=== PATIENT | male | born 1985 | race Caucasian/White ===

== ENCOUNTER 2024-03-26 09:43 | Emergency (ER) | payer OTHER, SELFPAY ==
[2024-03-26 09:51] VITALS: BP 123/75; PULSE 108; RESP 20; TEMP 36.4; O2SAT 100
--- NOTE | 2024-03-26 10:17 | ED.URI ---
HPI - URI/Sore Throat General Chief Complaint: Upper Respiratory Infection Stated Complaint: Sore Throat/Fever/Cough Time Seen by Provider: 03/26/24 10:10 Source: patient, family, RN notes reviewed and old records reviewed Mode of arrival: ambulatory Limitations: no limitations History of Present Illness HPI Narrative: 38 year old male who presents to express care with complaints of sore throat, chest congestion, fevers and can't ear and can barely drink. Patient reports that his symptoms started last and he was seen in the urgent care at [facility] on Sunday with negative strep test started on Augmentin for tonsillitis, Patient reports that he went back on Sunday and was told to give the Augment a little longer and to take Tylenol and Ibuprofen for discomfort. Patient reports 4 days of antibiotic left and he is not any better. Throat is red with tonsils swollen and uvula swollen with scattered exudates on tonsils. Patient reports that he continues to have fevers and has been taking Tylenol and Ibuprofen with dosing this morning. Patient reports that he has been running fevers ranging from 100-101.7F. MD elicited complaint: cough and sore throat Onset (ago): day(s) (6) Consistency: constant Severity: moderate Able to tolerate fluids by mouth: Yes Associated symptoms: fever, sore throat, cough and other (chest congestion, difficulty with swallowing and pain) Related Data Home Medications ?Medication ?Instructions ?Recorded ?Confirmed ?Last Taken ?Type amoxicillin 875 mg-potassium tablet 03/26/24 Unknown History clavulanate 125 mg tablet gabapentin 100 mg capsule mg 03/26/24 Unknown History Allergies Allergy/AdvReac Type Severity Reaction Status Date / Time No Known Allergies Allergy Verified 03/26/24 10:04 Review of Systems Review of Systems: CONSTITUTIONAL: reports malaise, chills, sweats, or fever. EYES: Denies visual changes, redness, or discharge. ENT: Reports rhinorrhea, congestion, sinus pain, no otalgia and positive for sore throat. CARDIOVASCULAR: Denies chest pain, palpitations, or edema. RESPIRATORY: Reports cough.? Denies dyspnea. GASTROINTESTINAL: Denies abdominal pain, nausea, vomiting, diarrhea SKIN: Denies rash or itching. MUSCULOSKELETAL: Denies myalgia. NEUROLOGIC: Denies headache. All systems reviewed & are unremarkable except as noted in HPI and below PMFSH Social History Social History Smoking status: Never smoker Alcohol intake: current Alcohol use details: social Substance use type: does not use Living arrangements: with family Occupation/Education: occupation Additional occupation/education comments: [employer] Gender identity (if verbalized by the patient): Male Comments At time of signature, agree with nursing past medical, surgical, social and family history. There is no relevant family history pertinent to the presenting complaint Exam Narrative: GENERAL: Ill-appearing, well-nourished, and in no acute distress. HEAD: Normocephalic EYES: PERRLA, conjunctivae clear ENT: Nares clear, turbinates edematous and erythematous, clear discharge. Mucous membranes moist. TM pearly boswell with dull light reflex bilaterally; no tragal tenderness. Oropharynx erythematous without lesions. Tonsils red enlarged and with white exudate, no drooling, some hoarseness, no trismus,no Cristopher angina, uvula red swollen midline.post nasal drainage NECK: Supple. lymphadenopathy CHEST: Clear to auscultation, breath sounds equal. No wheezing, rhonchi, rales, or stridor. No respiratory distress, speaks in full sentences.loose cough SAO2 100% on room air HEART: Regular rate and rhythm. No murmur heard. SKIN: Warm, dry, no rash. NEURO: Alert and oriented x3. PSYCH: Normal mood and affect Course Course Emergency Course: Patient is aware of diagnosis, understands and agrees to treatment plan.? Anticipatory guidance given.? Patient agrees to follow-up as directed and is aware of reasons to seek care at the emergency department. Portions of this record may have been created with voice recognition software Level of Care: Express Care Visit Vital Signs Vital signs: Vital Signs Temperature 36.4 C 03/26/24 09:51 Pulse Rate 108 H 03/26/24 09:51 Respiratory Rate 20 03/26/24 09:51 Blood Pressure 123/75 03/26/24 09:51 Pulse Oximetry 100 03/26/24 09:51 Oxygen Delivery Room Air 03/26/24 09:51 Temperature 36.4 C 03/26/24 09:51 Pulse Rate 108 H 03/26/24 09:51 Respiratory Rate 20 03/26/24 09:51 Blood Pressure 123/75 03/26/24 09:51 Pulse Oximetry 100 03/26/24 09:51 Oxygen Delivery Room Air 03/26/24 09:51 Reviewed MDM - URI/Sore Throat MDM Narrative Medical decision making narrative: Differential diagnosis considered: Hathaway virus, strep pharyngitis, allergic rhinitis, upper respiratory tract infection, sinusitis, rhinosinusitis, nasopharyngitis. viral pharyngitis, otitis media, otitis externa, pneumonia, bronchitis, viral cough syndrome, viral syndrome, and influenza.? Exam findings show no acute concerns or changes; patient is non-toxic appearing and is in no distress.? Patient is appropriate for outpatient treatment and follow-up. Differential Diagnosis Differential diagnosis: Likely upper respiratory infection, sinusitis, viral infection, pharyngitis and other (strep pharyngitis, exudative tonsilitis, painful and difficulty with swallowing) Medical Records Attestation: I reviewed the patient's medical records. Lab Data Attestation: I reviewed the patient's lab results. Critical Care Time Critical Care Time Critical Care Time: No Discharge Plan Discharge Clinical Impression: Exudative tonsillitis Patient Disposition: Home, Self-Care Condition: Stable Instructions: Antibiotic Form, Tonsillitis (ED) Additional Instructions: . Take the entire course of antibiotics. Decadron dose daily as ordered for swelling Throw away your current toothbrush and begin using a new toothbrush in 48 hours in order to prevent re-infection. Sanitize all reusable water bottles . Do not share items with others. Salt water gargles may alleviate some of the throat discomfort. You can take Tylenol or ibuprofen per the package instructions for pain/fever. Steroid as prescribed take with food Recommend Claritin,Zyrtec or Kath daily and include decongestant such as Sudafed in am If your symptoms persist, change or worsen significantly before you can contact your personal physician then please, without delay, go to the emergency department for further evaluation. Follow-up with PCP in 7-10 days or sooner if needed Patient Language: Japanese Prescriptions: New clindamycin HCl 300 mg capsule 300 mg PO Q8H Qty: 30 0RF dexamethasone 6 mg tablet 6 mg PO DAILY Qty: 5 0RF Rx Instructions: take with food in am No Action gabapentin 100 mg capsule amoxicillin-pot clavulanate 875-125 mg tablet Follow-up/Referrals: PHYSICIAN,ACCOUNT CONSULTANT [Primary Care Provider] - Stand Alone Forms: Work/School Release IP Time of Disposition: 10:33 Quality Laquita Coma Scale Eyes: Open Verbal: Oriented and Alert Motor: Follows Commands Laquita Coma Total Score: 15
--- OUTSIDE RECORDS SUMMARY | 2024-03-26 10:48 | XMS_ITS | Encounter Summary ---
Author Organization [facility] Address [address] [place] [address] Care Team Providers Care Internet Assessor Name Role Phone Cherry Benitez [facility] Primary Care Provider + Encounter Details Date Type Department Care Team (Late st Contact Info) Description 09/29/2022 Nimiat Message Enc [facility] Medical Group Family & Internal Medicine [facility] [id number] [place] [phone] Cherry Benitez [facility] [id number] [place] [address], [address] [place] [address] Sleep test. Social History Tobacco Use Types Packs/Day Years Used Date Smoking Tobacco: Former Cigarettes 0.5 5 0 09/12/2009 - 09/12/2014 Smokeless Tobacco: Current Chew Alcohol Use Standard Drinks/Week Comments Yes 0 (1 standard drink = 0.6 oz pur e alcohol) 6 drinks per week, alma PHQ-2 Answer Date Recorded Patient Health Questionnaire-2 Score 0 09/29/2022 Sex and Gender Information Value Date Recorded Sex Assigned at Not on file Legal Sex Male 5:47 PM CDT Gender Identity Not on file Sexual Orientation Not on file documented as of this encounter Progress Notes * Laura Mills RN - 10/02/2022 1:16 PM CDT Patient inquiring about a home sleep study? Ok to order? documented in this encounter Plan of Treatment Not on file documented as of this encounter Visit Diagnoses Not on filedocumented in this encounter Care Teams Internet Assessor Relationship Specialty Start Date End Date Cherry Benitez, [facility]- [address], [address] [place] [address] PCP - General Nurse Practitioner Family 09/28/22 documented as of this encounter
--- OUTSIDE RECORDS SUMMARY | 2024-03-26 10:48 | XMS_ITS | Clinical Summary ---
Author Organization [facility] Address [address] [place] [address] Phone Care Team Providers Care Polysomnographer Name Role Phone Provider, None Primary Care Provider Unavailabl e Allergies No known active allergies Medications gabapentin (NEURONTIN) 100 MG Capsule 03/01/2024 Active losartan (COZAAR) 100 MG Tablet Take 100 mg by mouth daily. 05/04/2023 Active amoxicillin-clav ulanate (AUGMENTIN) 875-125 MG TabletIndication s:Tonsillitis with exudate Take 1 Tablet by mouth 2 times daily for 10 days. 20 Tablet 03/21/2024 Active Hospital, Clinic, or Other Facility Administered Medication Ordered Dose Route Frequency Start Date End Date Status ibuprofen (MOTRIN) tablet 800 mgIndications:Fever in adult 800 mg PO ONCE 03/23/2024 03/23/2024 Ended Active Problems No known active problems Encounters Date Type Department Care Team Description 03/23/2024 12:25 PM BLOW MOLDING MACHINE OPERATOR Urgent Care Visit [facility] [address] [place] [address] Ryan Henry PAC Fever in adult (Primary Dx); Tonsillitis with exudate Discharge Disposition: Discharged to home or Selfcare 03/21/2024 10:20 AM BLOW MOLDING MACHINE OPERATOR Urgent Care [facility] [address] [place] [address] Gladis Lozada APRN, SAUSAGE STUFFER Tonsillitis with exudate (Primary Dx); Sore throat Discharge Disposition: Discharged to home or Selfcare 03/21/2024 Travel from Last 3 Months Immunizations Immunization Administration Dates Next Due Covid-19, Mrna, Lnp-s, PF, 1 00 mcg/0.5 mL Dose (Moderna) 02/20/2020 Social History Tobacco Use Types Packs/Day Years Used Date Smoking Tobacco: Never Smokeless Tobacco: Never Tobacco Cessation:Counseling Given: No Sex and Gender Information Value Date Recorded Sex Assigned at Not on file Legal Sex Male 3:43 AM BLOW MOLDING MACHINE OPERATOR Gender Identity Not on file Sexual Orientation Not on file Last Filed Vital Signs Vital Sign Reading Time Taken Comments Blood Pressure 142/68 03/23/2024 12:39 PM BLOW MOLDING MACHINE OPERATOR Pulse 127 03/23/2024 12:39 PM BLOW MOLDING MACHINE OPERATOR Temperature 38.7 C (101.6 F) 03/23/2024 12:39 PM BLOW MOLDING MACHINE OPERATOR Respiratory Rate 18 03/23/2024 12:39 PM BLOW MOLDING MACHINE OPERATOR Oxygen Saturation 98% 03/23/2024 12:39 PM BLOW MOLDING MACHINE OPERATOR Inhaled Oxygen Concentration - - Weight - - Height - - Body Mass Index - - Plan of Treatment Health Maintenance Due Date Last Done Comments Hepatitis C Virus (HCV) Screening 1985 TdaP Immunization 1985 Influenza Immunization (#1) 2023 SARS-COV-2 Immunization (2023- season) 2023 03/16/2020, 02/20/2020 Respiratory Syncytial Virus (RSV) Immunization (Adult) (1 - 1-dose 75+ series) 2060 Hepatitis B Immunization Completed , 09/30/1999, 08/26/1999 Meningococcal Immunization (ACWY) Aged Out No longer eligible b ased on patient's age to complete this topic Pneumococcal Immunization Combined Aged Out No longer eligible b ased on patient's age to complete this topic Rotavirus Immunization Aged Out No lo nger eligible based on patient's age to complete this topic Procedures Procedure Name Priority Date/Time Associated Diagnosis Comments POC INFLUENZA A AND B BY MOLECULAR Routine 03/21/2024 10:40 AM BLOW MOLDING MACHINE OPERATOR Sore throat POC GROUP A STREP BY MOLECULAR Routine 03/21/2024 10:39 AM BLOW MOLDING MACHINE OPERATOR Sore throat POC SARS-COV-2 BY MOLECULAR Routine 03/21/2024 10:39 AM BLOW MOLDING MACHINE OPERATOR Sore throat from Last 3 Months Results * POC INFLUENZA A AND B BY MOLECULAR (03/21/2024 10:40 AM BLOW MOLDING MACHINE OPERATOR) INFLUENZA A RNA Negative Negative, Invalid INFLUENZA B RNA Negative Negative, Invalid PROCEDURE CONTROL Valid 03/21/2024 10:4 0 AM BLOW MOLDING MACHINE OPERATOR us Gladis L [employer] HAND CANDLE MOLDER, SAUSAGE STUFFER POINT OF CARE TESTI NG (MANUAL) Final Result * POC SARS-COV-2 BY MOLECULAR (03/21/2024 10:39 AM BLOW MOLDING MACHINE OPERATOR) SARSCOV2 Negative Negative, INVALID PROCEDURE CONTROL Valid 03/21/2024 10:3 9 AM BLOW MOLDING MACHINE OPERATOR us Gladis L [employer] HAND CANDLE MOLDER, SAUSAGE STUFFER POINT OF CARE TESTI NG (MANUAL) Final Result * POC GROUP A STREP BY MOLECULAR (03/21/2024 10:39 AM BLOW MOLDING MACHINE OPERATOR) STREP A DNA Negative Negative, Invalid PROCEDURE CONTROL Valid 03/21/2024 10:3 9 AM BLOW MOLDING MACHINE OPERATOR us Gladis L [employer] HAND CANDLE MOLDER, SAUSAGE STUFFER POINT OF CARE TESTI NG (MANUAL) Final Result from Last 3 Months Insurance [facility] Care Teams Polysomnographer Relationship Specialty Start Date End Date Provider, None JENNY PCP - General 03/21/24
--- OUTSIDE RECORDS SUMMARY | 2024-03-26 10:48 | XMS_ITS | Clinical Summary ---
Author Organization [facility] Address [facility] [place] [address] Care Team Providers Care Floor Tiling Professional Name Role Phone Cherry Benitez [facility] Primary Care Provider + Allergies No known active allergies Medications Testosterone Cypionate Powder 07/14/2022 Ac tive Testosterone Enanthate Powder 07/14/2022 Ac tive Testosterone Propionate Powder 07/14/2022 A ctive losartan (COZAAR) 100 MG tabletIndications :Primary hypertension Take 1 tablet (100 mg total) by mouth daily. 90 tablet 1 05/04/2023 Active Active Problems Problem Noted Date Diagnosed Date Moderate obstructive sleep apnea 05/14/2023 Tobacco dependence due to chewing tobacco 2022 Low testosterone level in male 09/29/2022 Loud snoring 09/29/2022 Primary hypertension 09/29/2022 Immunizations Name Administration Dates Next Due Dtp (Generic) 07/24/1990, 8,02/24/1986, 986,1985 Hepatitis B Pediatric 02/03/2000,09/30/1999,08/12 Hib (Generic) 11/23/1987 MMR (MMRII) 07/24/1990,11/24/1986 MODERNA COVID-19 (12+) MRNA, LNP-S, PF, 100 MCG/ 0.5 ML DOSE 03/26/2020,03/16/2020,02/20/2020 Polio Opv (Generic) 07/24/1990, 8,02/24/1986, 986,1985 Td 02/12/2019 Td (TDVAX) 08/23/1999 Family History Medical History Relation Comments Arthritis Father ALS Maternal Grandfather Heart Disease Maternal Grandmother Heart Disease Mother Hypertension Mother Liver Disease Paternal Grandfather Lung Cancer Paternal Grandfather Relation Status Comments Father Alive Maternal Grandfather Maternal Grandmother Mother Alive Paternal Grandfather Social History Tobacco Use Types Packs/Day Years Used Date Smoking Tobacco: Former Cigarettes 0.5 5 0 09/12/2009 - 09/12/2014 Smokeless Tobacco: Current Chew Tobacco Cessation:Ready to Q uit: No; Counseling Given: Yes Alcohol Use Standard Drinks/Week Comments Yes 0 (1 standard drink = 0.6 oz pur e alcohol) 6 drinks per week, alma PHQ-2 Answer Date Recorded Patient Health Questionnaire-2 Score 0 05/14/2023 Sex and Gender Information Value Date Recorded Sex Assigned at Not on file Legal Sex Male 5:47 PM CDT Gender Identity Not on file Sexual Orientation Not on file Last Filed Vital Signs Vital Sign Reading Time Taken Comments Blood Pressure 131/84 05/14/2023 7:11 AM CDT Pulse 84 05/14/2023 6:59 AM CDT Temperature 36.3 C (97.4 F) 05/14/2023 6:59 AM CDT Respiratory Rate 16 05/14/2023 6:59 AM CDT Oxygen Saturation 98% 05/14/2023 6:59 AM CDT Inhaled Oxygen Concentration - - Weight 93.8 kg (206 lb 12.8 oz) 05/14/2023 6:59 AM CDT Height 188 cm (6' 2 ) 05/14/2023 6:59 AM CDT Body Mass Index 26.55 05/14/2023 6:59 AM CDT Plan of Treatment Health Maintenance Due Date Last Done Comments DTaP, Tdap and Td Vaccines (6 - Tdap) 02/13/2019 02/12/2019, 08/23/1999, 07/24/1990, Additional history exists Annual Physical 05/04/2019 05/03/2018 COVID-19 Vaccine ( season) 2023 03/26/2020, 03/16/2020, 02/20/2020 Influenza Adult (#1) 2023 PHQ-2 (Physician [facility]) 02/13/2024 05/14/2023 PHQ-2 (Physician [facility]) 05/13/2024 05/14/2023 Hepatitis B Vaccines Completed 02/03/2000, 09/30/1999, 08/26/1999 Hepatitis C Addressed 02/12/2015 (Debo ent Reported) Overridden with the intention of not completing the topic HPV Vaccines Aged Out No longer eligi ble based on patient's age to complete this topic Meningococcal B Vaccine Aged Out No l onger eligible based on patient's age to complete this topic Meningococcal Vaccine Aged Out No carlito chrissy eligible based on patient's age to complete this topic Pneumococcal Vaccine: Pediatrics (0 to 5 Years) and At-Risk Patients (6 to 64 Years) Aged Out No longer eligible based on patient's age to complete this topic RSV Immunizations Under 20 Months Aged Out No longer eligible based on patient's age to complete this topic Insurance [id number] [place] [id number] [facility] Care Teams Floor Tiling Professional Relationship Specialty Start Date End Date Cherry Benitez, [facility]- [address], [address] [place], [place] [id number] PCP - General Nurse Practitioner Family 09/28/22
--- OUTSIDE RECORDS SUMMARY | 2024-03-26 10:48 | XMS_ITS | Encounter Summary ---
Author Organization [facility] Address [address] [place] [address] Care Team Providers Care Jewel Setter Name Role Phone Cherry Benitez [facility] Primary Care Provider + Encounter Details Date Type Department Care Team (Late st Contact Info) Description 02/19/2023 Juxinli Message Enc [facility] Medical Group Family & Internal Medicine [facility] [id number] [place] [phone] Sully, [facility] Provider Cpap Social History Tobacco Use Types Packs/Day Years [...] on file documented as of this encounter Plan of Treatment Not on file documented as of this encounter Visit Diagnoses Not on filedocumented in this encounter Care Teams Jewel Setter Relationship Specialty Start Date End Date [facility] [address] [facility], [address] [place] [address] PCP - General Nurse Practitioner Family 09/28/22 documented as of this encounter
== END 2024-03-26 10:41 | disposition home or self-care (01) ==
PROVIDERS: Emergency Provider Registered Nurse
DX: J03.90 Acute tonsillitis, unspecified (principal)
CPT/HCPCS: 99203; G0463